=== PATIENT | male | born 1945 | race Caucasian/White ===

== ENCOUNTER 2019-03-22 11:00 | Outpatient (RCR) | payer SELFPAY | END 2019-04-21 00:01 | LOC: CR 11:00 | PROVIDERS: Family Provider Family Medicine; Visit Provider Internal Medicine Cardiovascular Disease | DX: I25.2 Old myocardial infarction (principal) ==

== ENCOUNTER 2019-04-29 13:17 | Outpatient (RCR) | payer SELFPAY | END 2019-05-22 23:59 | disposition home or self-care (01) | LOC: CR 13:17 | PROVIDERS: Family Provider Family Medicine; PCP Family Medicine; Referring Provider Internal Medicine Cardiovascular Disease; Visit Provider Internal Medicine Cardiovascular Disease | DX: I25.2 Old myocardial infarction (principal) ==

== ENCOUNTER 2019-05-25 14:28 | Outpatient (RCR) | payer SELFPAY | END 2019-06-20 23:59 | disposition home or self-care (01) | LOC: CR 14:28 | PROVIDERS: Family Provider Family Medicine; PCP Family Medicine; Referring Provider Internal Medicine Cardiovascular Disease; Visit Provider Internal Medicine Cardiovascular Disease | DX: I25.2 Old myocardial infarction (principal) ==

== ENCOUNTER 2019-06-23 08:19 | Outpatient (RCR) | payer SELFPAY | END 2019-07-21 23:59 | disposition home or self-care (01) | LOC: CR 08:19 | PROVIDERS: Family Provider Family Medicine; PCP Family Medicine; Referring Provider Internal Medicine Cardiovascular Disease; Visit Provider Internal Medicine Cardiovascular Disease | DX: I25.2 Old myocardial infarction (principal) ==

== ENCOUNTER → 2019-07-16 09:19 | Outpatient (BNVA) | payer MEDICARE, BC, SELFPAY | PROVIDERS: Family Provider Family Medicine; PCP Family Medicine; Referring Provider Specialist; Visit Provider Anesthesiology Pain Medicine | DX: M48.062 Spinal stenosis, lumbar region with neurogenic claudication (principal); M51.17 Intervertebral disc disorders with radiculopathy, lumbosacral region; M47.816 Spondylosis without myelopathy or radiculopathy, lumbar region; M79.606 Pain in leg, unspecified; Z98.890 Other specified postprocedural states; Z79.899 Other long term (current) drug therapy | CPT/HCPCS: 99204 ==

== ENCOUNTER → 2019-07-23 12:18 | Outpatient (BNVA) | payer MEDICARE, BC, SELFPAY | PROVIDERS: Family Provider Family Medicine; PCP Family Medicine; Visit Provider Anesthesiology Pain Medicine | DX: M47.816 Spondylosis without myelopathy or radiculopathy, lumbar region (principal); M51.17 Intervertebral disc disorders with radiculopathy, lumbosacral region; M48.062 Spinal stenosis, lumbar region with neurogenic claudication | CPT/HCPCS: 64493; 64494; 64495; 64520; J2001; J3490 ==

== ENCOUNTER → 2019-09-03 13:47 | Outpatient (BNVA) | payer MEDICARE, BC, SELFPAY | PROVIDERS: Family Provider Family Medicine; PCP Family Medicine; Visit Provider Anesthesiology Pain Medicine | DX: M47.816 Spondylosis without myelopathy or radiculopathy, lumbar region (principal); M48.062 Spinal stenosis, lumbar region with neurogenic claudication; M51.17 Intervertebral disc disorders with radiculopathy, lumbosacral region; Z98.890 Other specified postprocedural states | CPT/HCPCS: 64635; 64636; 77003; 99213; J1030; J2001 ==

== ENCOUNTER → 2019-09-23 14:21 | Outpatient (BNVA) | payer MEDICARE, BC, SELFPAY | PROVIDERS: Family Provider Family Medicine; PCP Family Medicine; Visit Provider Anesthesiology Pain Medicine | DX: M47.816 Spondylosis without myelopathy or radiculopathy, lumbar region (principal); M48.062 Spinal stenosis, lumbar region with neurogenic claudication; M51.17 Intervertebral disc disorders with radiculopathy, lumbosacral region; M54.9 Dorsalgia, unspecified; Z98.890 Other specified postprocedural states | CPT/HCPCS: 64635; 64636; 77003; 99213; J1030; J2001 ==

== ENCOUNTER 2019-09-29 15:02 | Outpatient (RCR) | payer SELFPAY | END 2019-10-20 23:59 | disposition home or self-care (01) | LOC: CR 15:02 | PROVIDERS: Family Provider Family Medicine; PCP Family Medicine; Referring Provider Internal Medicine Cardiovascular Disease; Visit Provider Internal Medicine Cardiovascular Disease | DX: I25.2 Old myocardial infarction (principal) ==

== ENCOUNTER → 2019-10-08 09:21 | Outpatient (BNVA) | payer MEDICARE, BC, SELFPAY | PROVIDERS: Family Provider Family Medicine; PCP Family Medicine; Visit Provider Anesthesiology Pain Medicine | DX: M48.062 Spinal stenosis, lumbar region with neurogenic claudication (principal); M47.816 Spondylosis without myelopathy or radiculopathy, lumbar region; M51.17 Intervertebral disc disorders with radiculopathy, lumbosacral region; Z98.890 Other specified postprocedural states | CPT/HCPCS: 99213 ==

== ENCOUNTER 2019-10-21 | Outpatient (RCR) | payer SELFPAY | END 2019-11-20 23:00 | disposition home or self-care (01) | LOC: CR | PROVIDERS: Family Provider Family Medicine; PCP Family Medicine; Referring Provider Internal Medicine Cardiovascular Disease; Visit Provider Internal Medicine Cardiovascular Disease | DX: I25.2 Old myocardial infarction (principal) ==

== ENCOUNTER 2019-11-24 14:19 | Outpatient (RCR) | payer SELFPAY | END 2019-12-21 23:59 | disposition home or self-care (01) | LOC: CR 14:19 | PROVIDERS: Family Provider Family Medicine; PCP Family Medicine; Referring Provider Internal Medicine Cardiovascular Disease; Visit Provider Internal Medicine Cardiovascular Disease | DX: I25.2 Old myocardial infarction (principal) ==

== ENCOUNTER 2019-12-22 14:52 | Outpatient (RCR) | payer SELFPAY | END 2020-01-20 23:59 | disposition home or self-care (01) | LOC: CR 14:52 | PROVIDERS: Family Provider Family Medicine; PCP Family Medicine; Referring Provider Internal Medicine Cardiovascular Disease; Visit Provider Internal Medicine Cardiovascular Disease | DX: I25.2 Old myocardial infarction (principal) ==

== ENCOUNTER 2020-01-22 09:31 | Outpatient (RCR) | payer SELFPAY | END 2020-02-20 23:59 | disposition home or self-care (01) | LOC: CR 09:31 | PROVIDERS: Family Provider Family Medicine; PCP Family Medicine; Referring Provider Internal Medicine Cardiovascular Disease; Visit Provider Internal Medicine Cardiovascular Disease | DX: I25.2 Old myocardial infarction (principal) ==

== ENCOUNTER 2020-06-20 11:11 | Outpatient (RCR) | payer SELFPAY | END 2020-07-20 23:59 | disposition home or self-care (01) | LOC: CR 11:11 | PROVIDERS: PCP Family Medicine; Referring Provider Internal Medicine Cardiovascular Disease; Visit Provider Internal Medicine Cardiovascular Disease | DX: I25.2 Old myocardial infarction (principal) ==

== ENCOUNTER 2020-07-21 09:35 | Outpatient (RCR) | payer SELFPAY | END 2020-08-19 23:59 | disposition home or self-care (01) | LOC: CR 09:35 | PROVIDERS: PCP Family Medicine; Referring Provider Internal Medicine Cardiovascular Disease; Visit Provider Internal Medicine Cardiovascular Disease | DX: I25.2 Old myocardial infarction (principal) ==

== ENCOUNTER 2020-08-22 11:00 | Outpatient (RCR) | payer SELFPAY | END 2020-09-19 23:59 | disposition home or self-care (01) | LOC: CR 11:00 | PROVIDERS: PCP Family Medicine; Referring Provider Internal Medicine Cardiovascular Disease; Visit Provider Internal Medicine Cardiovascular Disease | DX: I25.2 Old myocardial infarction (principal) ==

== ENCOUNTER 2020-09-22 14:32 | Outpatient (RCR) | payer SELFPAY | END 2020-10-19 23:59 | disposition home or self-care (01) | LOC: CR 14:32 | PROVIDERS: PCP Family Medicine; Referring Provider Internal Medicine Cardiovascular Disease; Visit Provider Internal Medicine Cardiovascular Disease | DX: I25.2 Old myocardial infarction (principal) ==

== ENCOUNTER 2020-10-20 14:13 | Outpatient (RCR) | payer SELFPAY | END 2020-11-19 23:59 | disposition home or self-care (01) | LOC: CR 14:13 | PROVIDERS: PCP Family Medicine; Referring Provider Internal Medicine Cardiovascular Disease; Visit Provider Internal Medicine Cardiovascular Disease | DX: I25.2 Old myocardial infarction (principal) ==

== ENCOUNTER 2020-11-21 15:03 | Outpatient (RCR) | payer SELFPAY | END 2020-12-20 23:59 | disposition home or self-care (01) | LOC: CR 15:03 | PROVIDERS: PCP Family Medicine; Referring Provider Internal Medicine Cardiovascular Disease; Visit Provider Internal Medicine Cardiovascular Disease | DX: I25.2 Old myocardial infarction (principal) ==

== ENCOUNTER 2021-01-20 10:18 | Outpatient (RCR) | payer SELFPAY | END 2021-02-19 23:59 | disposition home or self-care (01) | LOC: CR 10:18 | PROVIDERS: PCP Family Medicine; Referring Provider Internal Medicine Cardiovascular Disease; Visit Provider Internal Medicine Cardiovascular Disease | DX: I25.2 Old myocardial infarction (principal) ==

== ENCOUNTER 2021-02-20 14:18 | Outpatient (RCR) | payer SELFPAY | END 2021-03-21 23:59 | disposition home or self-care (01) | LOC: CR 14:18 | PROVIDERS: PCP Family Medicine; Referring Provider Internal Medicine Cardiovascular Disease; Visit Provider Internal Medicine Cardiovascular Disease | DX: I25.2 Old myocardial infarction (principal) ==

== ENCOUNTER 2021-03-22 13:33 | Outpatient (RCR) | payer SELFPAY | END 2021-04-21 23:59 | disposition home or self-care (01) | LOC: CR 13:33 | PROVIDERS: PCP Family Medicine; Referring Provider Internal Medicine Cardiovascular Disease; Visit Provider Internal Medicine Cardiovascular Disease | DX: I25.2 Old myocardial infarction (principal) ==

== ENCOUNTER 2021-04-24 10:56 | Outpatient (RCR) | payer SELFPAY | END 2021-05-22 23:59 | disposition home or self-care (01) | LOC: CR 10:56 | PROVIDERS: PCP Family Medicine; Referring Provider Internal Medicine Cardiovascular Disease; Visit Provider Internal Medicine Cardiovascular Disease | DX: I25.2 Old myocardial infarction (principal) ==

== ENCOUNTER 2021-05-23 09:07 | Outpatient (RCR) | payer SELFPAY | END 2021-06-19 23:59 | disposition home or self-care (01) | LOC: CR 09:07 | PROVIDERS: PCP Family Medicine; Referring Provider Internal Medicine Cardiovascular Disease; Visit Provider Internal Medicine Cardiovascular Disease | DX: I25.2 Old myocardial infarction (principal) ==

== ENCOUNTER 2021-06-20 13:17 | Outpatient (RCR) | payer SELFPAY | END 2021-07-20 23:59 | disposition home or self-care (01) | LOC: CR 13:17 | PROVIDERS: PCP Family Medicine; Referring Provider Internal Medicine Cardiovascular Disease; Visit Provider Internal Medicine Cardiovascular Disease | DX: I25.2 Old myocardial infarction (principal) ==

== ENCOUNTER → 2021-07-06 13:57 | Outpatient (BNVA) | payer MEDICARE, BC, SELFPAY | PROVIDERS: PCP Family Medicine; Visit Provider Internal Medicine Cardiovascular Disease | DX: I25.10 Atherosclerotic heart disease of native coronary artery without angina pectoris (principal); E11.65 Type 2 diabetes mellitus with hyperglycemia; E78.2 Mixed hyperlipidemia | CPT/HCPCS: 99214 ==

== ENCOUNTER 2021-07-21 13:50 | Outpatient (RCR) | payer SELFPAY | END 2021-08-19 23:59 | disposition home or self-care (01) | LOC: CR 13:50 | PROVIDERS: PCP Family Medicine; Referring Provider Internal Medicine Cardiovascular Disease; Visit Provider Internal Medicine Cardiovascular Disease | DX: I25.2 Old myocardial infarction (principal) ==

== ENCOUNTER 2021-08-21 13:03 | Outpatient (RCR) | payer SELFPAY | END 2021-09-19 23:59 | disposition home or self-care (01) | LOC: CR 13:03 | PROVIDERS: PCP Family Medicine; Referring Provider Internal Medicine Cardiovascular Disease; Visit Provider Internal Medicine Cardiovascular Disease | DX: I25.2 Old myocardial infarction (principal) ==

== ENCOUNTER → 2021-10-05 12:52 | Outpatient (BNVA) | payer MEDICARE, BC, SELFPAY | PROVIDERS: PCP Family Medicine; Visit Provider Anesthesiology Pain Medicine | DX: M79.605 Pain in left leg (principal); M48.062 Spinal stenosis, lumbar region with neurogenic claudication; M47.816 Spondylosis without myelopathy or radiculopathy, lumbar region; M51.17 Intervertebral disc disorders with radiculopathy, lumbosacral region; Z98.890 Other specified postprocedural states | CPT/HCPCS: 99213 ==

== ENCOUNTER → 2021-10-18 10:10 | Outpatient (BNVA) | payer MEDICARE, BC, SELFPAY | PROVIDERS: PCP Family Medicine; Visit Provider Family Medicine | DX: E11.65 Type 2 diabetes mellitus with hyperglycemia (principal); Z12.5 Encounter for screening for malignant neoplasm of prostate; N40.0 Benign prostatic hyperplasia without lower urinary tract symptoms | CPT/HCPCS: 80048; 83036; 84153 ==

== ENCOUNTER → 2021-12-07 13:02 | Outpatient (BNVA) | payer MEDICARE, BC, SELFPAY | PROVIDERS: PCP Family Medicine; Visit Provider Anesthesiology Pain Medicine | DX: Z79.84 Long term (current) use of oral hypoglycemic drugs (principal); M47.816 Spondylosis without myelopathy or radiculopathy, lumbar region; M48.062 Spinal stenosis, lumbar region with neurogenic claudication; E11.9 Type 2 diabetes mellitus without complications | CPT/HCPCS: 36416; 64635; 64636; 82962 ==

== ENCOUNTER → 2021-12-28 14:16 | Outpatient (BNVA) | payer MEDICARE, BC, SELFPAY | PROVIDERS: PCP Family Medicine; Visit Provider Anesthesiology Pain Medicine | DX: M47.816 Spondylosis without myelopathy or radiculopathy, lumbar region (principal); M48.062 Spinal stenosis, lumbar region with neurogenic claudication; E11.9 Type 2 diabetes mellitus without complications; Z79.84 Long term (current) use of oral hypoglycemic drugs | CPT/HCPCS: 36416; 64635; 64636; 82962 ==

== ENCOUNTER → 2022-01-15 09:03 | Outpatient (BNVA) | payer MEDICARE, BC, SELFPAY | PROVIDERS: PCP Family Medicine; Visit Provider Anesthesiology Pain Medicine | DX: I25.10 Atherosclerotic heart disease of native coronary artery without angina pectoris (principal); I10 Essential (primary) hypertension; M48.062 Spinal stenosis, lumbar region with neurogenic claudication; M47.816 Spondylosis without myelopathy or radiculopathy, lumbar region; M51.17 Intervertebral disc disorders with radiculopathy, lumbosacral region; Z98.890 Other specified postprocedural states | CPT/HCPCS: 99213; 99214 ==

== ENCOUNTER → 2022-04-02 10:39 | Outpatient (BNVA) | payer MEDICARE, BC, SELFPAY | PROVIDERS: PCP Family Medicine; Visit Provider Anesthesiology Pain Medicine | DX: M48.062 Spinal stenosis, lumbar region with neurogenic claudication (principal); M47.816 Spondylosis without myelopathy or radiculopathy, lumbar region; M51.17 Intervertebral disc disorders with radiculopathy, lumbosacral region; Z98.890 Other specified postprocedural states | CPT/HCPCS: 99212 ==

== ENCOUNTER → 2022-07-17 15:36 | Outpatient (BNVA) | payer MEDICARE, BC, SELFPAY | PROVIDERS: PCP Family Medicine; Visit Provider Internal Medicine Cardiovascular Disease | DX: I25.10 Atherosclerotic heart disease of native coronary artery without angina pectoris (principal); E11.65 Type 2 diabetes mellitus with hyperglycemia; E78.2 Mixed hyperlipidemia; I10 Essential (primary) hypertension; Z79.84 Long term (current) use of oral hypoglycemic drugs | CPT/HCPCS: 99214 ==

== ENCOUNTER → 2022-11-01 10:51 | Outpatient (BNVA) | payer MEDICARE, BC, SELFPAY | PROVIDERS: PCP Family Medicine; Visit Provider Anesthesiology Pain Medicine | DX: M48.062 Spinal stenosis, lumbar region with neurogenic claudication (principal); M47.816 Spondylosis without myelopathy or radiculopathy, lumbar region; M51.17 Intervertebral disc disorders with radiculopathy, lumbosacral region; Z98.890 Other specified postprocedural states | CPT/HCPCS: 99212 ==

== ENCOUNTER 2022-12-19 10:20 | Emergency (ER) | payer MEDICARE, BC, SELFPAY ==
[2022-12-19 10:38] VITALS: BP 162/90; PULSE 75; RESP 16; TEMP 36.6; O2SAT 98
--- NOTE | 2022-12-19 10:59 | ED_ITS ---
HPI - Wound/Laceration General: Chief Complaint: Wound/Laceration Stated Complaint: left arm open wound Time Seen by Provider: 12/19/22 10:38 Source: patient Mode of arrival: ambulatory Limitations: no limitations History of Present Illness: Patient is a very nice 77-year-old male who presents to ED today for evaluation and treatment of a large skin tear to his left forearm that he sustained just a few hours ago after his 6-year-old autistic grandson grabbed his arm and tore the skin. Tetanus is up-to-date. Onset (ago): hour(s) Extremity Location: Left: forearm Place: home Patient tetanus UTD: Yes Context: accidental Associated symptoms: Reports no associated symptoms Treatments prior to arrival: bandage Review of Systems Skin/Breast: Reports: other (large skin tear left forearm) Neuro: Denies: numbness in extremities or sensory changes PFS ED PFSH: Medical History CAD (coronary artery disease) Cervical radiculopathy Diabetes Discitis of lumbar region Fatigue GERD (gastroesophageal reflux disease) Hyperlipidemia Hypertension Intervertebral disc disorder with radiculopathy of lumbosacral region Lumbar stenosis with neurogenic claudication Stenosis, spinal, lumbar Synovial cyst of lumbar spine Ulnar neuropathy Surgical History History of back surgery (07/05/11) Dr. Risa Gongora L5-S1 laminectomy with resection of lumbar intraspinal epidural mass (synovial cyst) and decompression of neural elements. Repair of incidental durotomy. OPINION: 1. L2-L3 and L3-L4 no central stenoses from disc bulging, facet joint and ligamentum flavum hypertrophy with respective left L3 and left L4 lateral recess encroachments. 2. L4-L5 level intervertebral osteochondrosis, spondylosis, disc bulging and facet joint and ligamentum flavum hypertrophy, similar to the prior exam with encroachments of the right L5 lateral recess and bilateral L4 neural foramina. 3. At L5-S1, development of severe intervertebral osteochondrosis along with spondylosis and disc bulging combining with facet joint and ligamentum flavum hypertrophy and persistent or recurrent right L5-S1 synovial cyst formation to cause a moderate asymmetric central spinal stenosis and encroachments of the bilateral S1 lateral recesses. Additional encroachments of the bilateral L5 neural foramina, left greater than right. 4. L5-S1 type I degenerative vertebral endplate changes and enhancement likely secondary to the intervertebral osteochondrosis. Infectious discitis could appear similar. Signed by: Lisandra Dickson MD on 01/01/2019 5:50 PM WS: [id number] History of decompression of ulnar nerve 01/29/2019 Dr. Risa Gongora Open release of the ulnar nerve at the right elbow. History of hernia surgery (~1985) Family History Mother Cancer CAD (coronary artery disease) Dementia Brother Cancer Sister Cancer Father Lung disease Family/Other Lung disease CAD (coronary artery disease) Denies family history of Diabetes Clotting disorder Chronic kidney disease (CKD) Suicide Anesthesia complication Bleeding disorder Stroke Social History Smoking and tobacco status: never smoked Second hand smoke exposure: No Alcohol intake: never Substance/Drug Use: never Lives independently: Yes Household members: spouse Marital status: service: No Current occupational status: retired Current occupation: Keeps busy on farm Physical Exam Const: COMMON NORMALS: no acute distress, average body habitus, patient oriented x3, no limitations, healthy appearing, alert and well nourished Extremity: COMMON NORMALS: full ROM and capillary refill normal GENERAL: Yes normal exam except as noted LEFT UPPER EXTREMITY: Yes lower arm OTHER: Large skin tear measuring approximately 8 inches longitudinally to the dorsal aspect of his left forearm. Skin has been completely ripped off and no longer present leaving underlying tissue exposed. Scant amount of oozing in one area. Neuro: COMMON NORMALS: patient oriented x3, moves all extremities, no focal motor deficits and no sensory deficits noted SENSORIUM/ORIENTATION: Yes alert Skin: NARRATIVE SKIN EXAM: see above Course Vital Signs: Vital signs: Vital Signs Temperature 97.8 F 12/19/22 10:38 Pulse Rate 75 12/19/22 10:38 Respiratory Rate 16 12/19/22 10:38 Blood Pressure 162/90 12/19/22 10:38 Pulse Oximetry 98 12/19/22 10:38 MDM - Wound/Laceration Medical Decision Making Patient here with a very large skin tear to his left forearm. At this time the skin has been completely avulsed and there is nothing to repair unfortunately. Wound was gently cleansed and dressed. Bleeding controlled. Have patient follow-up with wound care. Return ED precautions given. Discharge Plan Discharge Patient Disposition: Home Clinical Impression: Skin tear of left forearm without complication Qualifiers: Encounter type: initial encounter Qualified Code(s): S51.812A - Laceration without foreign body of left forearm, initial encounter Condition: Stable Prescriptions: No Action pioglitazone 15 mg tablet 15 mg PO DAILY glipizide 10 mg tablet 10 mg PO BID benazepril 20 mg tablet 20 mg PO QDAY metoprolol tartrate 25 mg tablet 25 mg PO BID fluticasone propionate 50 mcg/actuation spray,suspension 1 spray INTRANASAL QDAY PRN montelukast [Singulair] 10 mg tablet 10 mg PO QDAY multivitamin Tablet 1 tab PO QAM cetirizine [Zyrtec] 10 mg tablet 5 mg PO DAILY PRN methylprednisolone acetate [Depo-Medrol] 40 mg/mL suspension 40 mg Infiltration ONCE Qty: 1 0RF methylprednisolone acetate [Depo-Medrol] 40 mg/mL suspension 40 mg Infiltration ONCE Qty: 1 0RF atorvastatin 40 mg tablet 40 mg PO QDAY Qty: 90 3RF amlodipine 5 mg tablet 5 mg PO QDAY Qty: 90 3RF clopidogrel 75 mg tablet 75 mg PO QDAY Qty: 90 3RF Januvia 100 mg tablet See Rx Instructions .ROUTE .COMPLEX Qty: 30 5RF Dose Instruction: TAKE 1 TABLET BY MOUTH EVERY DAY Rx Instructions: TAKE 1 TABLET BY MOUTH EVERY DAY Discharge Orders: Discharge ED (Routine); Ordered 12/19/22 Ordered By: India Nicolas Referrals: Tiburcio Singer MD [Primary Care Provider] - Patient Instructions: Skin Tear (ED) Activity Restrictions/Additional Instructions: As we discussed we have case management contact you shortly to help you get follow-up appointment at wound care. As we discussed you need to keep wound clean with gentle soap and water. Wound dressings need be to non-stick to help new skin form. Coding Level of Care Code ED Morning Babysitter for Faby Viveros
--- NOTE | 2022-12-19 15:17 | DCPLANNER ---
Addendum entered by Tali Jenkins 12/24/22 09:04: Patient had a follow up appointment scheduled with Wound Care - patient did attend appointment Addendum entered by Tali Jenkins 12/20/22 15:56: Patient has a follow up appointment scheduled for Saturday, December 21, 2022 at 2:[address] Dinh at [facility] Care. Original Note: it communications manager had message to schedule a follow up appointment for patient with Wound Care. it communications manager sent patients information to the front office staff at wound care. Patients information will be printed and reviewed. Clinic will call patient with appointment information.
== END 2022-12-19 12:16 | disposition home or self-care (01) ==
PROVIDERS: Emergency Provider Physician Assistant; PCP Family Medicine
DX: S51.812A Laceration without foreign body of left forearm, initial encounter (principal); Z79.84 Long term (current) use of oral hypoglycemic drugs; Z79.02 Long term (current) use of antithrombotics/antiplatelets; I25.10 Atherosclerotic heart disease of native coronary artery without angina pectoris; E11.9 Type 2 diabetes mellitus without complications; E78.5 Hyperlipidemia, unspecified; I10 Essential (primary) hypertension; W50.0XXA Accidental hit or strike by another person, initial encounter
CPT/HCPCS: 99282

== ENCOUNTER → 2022-12-21 13:30 | Outpatient (BNVA) | payer MEDICARE, BC, SELFPAY | PROVIDERS: PCP Family Medicine; Visit Provider Thoracic Surgery (Cardiothoracic Vascular Surgery) | DX: I96 Gangrene, not elsewhere classified (principal); S51.811A Laceration without foreign body of right forearm, initial encounter; X58.XXXA Exposure to other specified factors, initial encounter | CPT/HCPCS: 97597; 97598; 99203 ==

== ENCOUNTER → 2022-12-28 13:05 | Outpatient (BNVA) | payer MEDICARE, BC, SELFPAY | PROVIDERS: PCP Family Medicine; Visit Provider Thoracic Surgery (Cardiothoracic Vascular Surgery) | DX: I96 Gangrene, not elsewhere classified (principal); S51.811D Laceration without foreign body of right forearm, subsequent encounter; X58.XXXD Exposure to other specified factors, subsequent encounter | CPT/HCPCS: 97597; 97598 ==

== ENCOUNTER → 2023-01-04 13:02 | Outpatient (BNVA) | payer MEDICARE, BC, SELFPAY | PROVIDERS: PCP Family Medicine; Visit Provider Nurse Practitioner Family | DX: S51.811D Laceration without foreign body of right forearm, subsequent encounter (principal); X58.XXXD Exposure to other specified factors, subsequent encounter; I96 Gangrene, not elsewhere classified | CPT/HCPCS: 97597; 97598 ==

== ENCOUNTER → 2023-01-18 13:06 | Outpatient (BNVA) | payer MEDICARE, BC, SELFPAY | PROVIDERS: PCP Family Medicine; Visit Provider Thoracic Surgery (Cardiothoracic Vascular Surgery) | DX: I96 Gangrene, not elsewhere classified (principal); S51.812D Laceration without foreign body of left forearm, subsequent encounter; X58.XXXD Exposure to other specified factors, subsequent encounter | CPT/HCPCS: 97597; A6210; A6212 ==

== ENCOUNTER → 2023-01-25 12:59 | Outpatient (BNVA) | payer MEDICARE, BC, SELFPAY | PROVIDERS: PCP Family Medicine; Visit Provider Thoracic Surgery (Cardiothoracic Vascular Surgery) | DX: S51.812D Laceration without foreign body of left forearm, subsequent encounter (principal); X58.XXXD Exposure to other specified factors, subsequent encounter | CPT/HCPCS: 97597; A6021; A6212 ==

== ENCOUNTER → 2023-01-31 14:04 | Outpatient (BNVA) | payer MEDICARE, BC, SELFPAY | PROVIDERS: PCP Family Medicine; Visit Provider Internal Medicine Cardiovascular Disease | DX: I25.10 Atherosclerotic heart disease of native coronary artery without angina pectoris (principal); E78.2 Mixed hyperlipidemia; I10 Essential (primary) hypertension; E11.65 Type 2 diabetes mellitus with hyperglycemia; Z79.84 Long term (current) use of oral hypoglycemic drugs | CPT/HCPCS: 99214 ==

== ENCOUNTER → 2023-02-01 13:03 | Outpatient (BNVA) | payer MEDICARE, BC, SELFPAY | PROVIDERS: PCP Family Medicine; Visit Provider Thoracic Surgery (Cardiothoracic Vascular Surgery) | DX: I96 Gangrene, not elsewhere classified (principal); L98.492 Non-pressure chronic ulcer of skin of other sites with fat layer exposed | CPT/HCPCS: 97597; A6212 ==

== ENCOUNTER → 2023-02-08 12:59 | Outpatient (BNVA) | payer MEDICARE, BC, SELFPAY | PROVIDERS: PCP Family Medicine; Visit Provider Thoracic Surgery (Cardiothoracic Vascular Surgery) | DX: L98.492 Non-pressure chronic ulcer of skin of other sites with fat layer exposed (principal) | CPT/HCPCS: 97597 ==

== ENCOUNTER → 2023-02-15 13:08 | Outpatient (BNVA) | payer MEDICARE, BC, SELFPAY | PROVIDERS: PCP Family Medicine; Visit Provider Nurse Practitioner Family | DX: Z09 Encounter for follow-up examination after completed treatment for conditions other than malignant neoplasm (principal); Z87.2 Personal history of diseases of the skin and subcutaneous tissue | CPT/HCPCS: 99212 ==

== ENCOUNTER → 2023-05-01 11:05 | Outpatient (BNVA) | payer MEDICARE, BC, SELFPAY | PROVIDERS: PCP Family Medicine; Visit Provider Anesthesiology Pain Medicine | DX: M48.062 Spinal stenosis, lumbar region with neurogenic claudication (principal); M47.816 Spondylosis without myelopathy or radiculopathy, lumbar region; M51.17 Intervertebral disc disorders with radiculopathy, lumbosacral region; Z98.890 Other specified postprocedural states | CPT/HCPCS: 99213 ==

== ENCOUNTER → 2023-08-20 16:22 | Outpatient (BNVA) | payer MEDICARE, BC, SELFPAY | PROVIDERS: PCP Family Medicine; Visit Provider Internal Medicine Cardiovascular Disease | DX: R07.9 Chest pain, unspecified (principal); E78.2 Mixed hyperlipidemia; E11.65 Type 2 diabetes mellitus with hyperglycemia; I44.0 Atrioventricular block, first degree; R94.31 Abnormal electrocardiogram [ECG] [EKG] | CPT/HCPCS: 93005; 99214 ==

== ENCOUNTER → 2024-02-26 14:06 | Outpatient (BNVA) | payer MEDICARE, BC, SELFPAY | PROVIDERS: PCP Family Medicine; Visit Provider Internal Medicine Cardiovascular Disease | DX: I25.10 Atherosclerotic heart disease of native coronary artery without angina pectoris (principal); I10 Essential (primary) hypertension; E78.2 Mixed hyperlipidemia; E11.65 Type 2 diabetes mellitus with hyperglycemia | CPT/HCPCS: 99214 ==